=== PATIENT | female | born 1985 | race Caucasian/White ===

== ENCOUNTER 2017-02-27 18:39 | Emergency (ER) | payer OTHER ==
[~2017-02-27] VITALS: Ht 180.3 cm; Wt 115.5 kg
[2017-02-27 19:45] LABS: HEMATOCRIT 42.7 % (36.0-46.0); HEMOGLOBIN 14.6 G/DL (11.9-15.5); MCH 27.7 PG (29.0-34.0); MCHC 34.2 G/DL (30.0-36.0); MCV 80.9 FL (83-99); PLATELET COUNT 387 K/uL (156-360); RBC DIS.WIDTH-SD 37.8 % (39-53); RED BLOOD COUNT 5.28 M/uL (3.80-5.20); WHITE BLOOD COUNT 12.1 K/uL (4.1-10.2)
[2017-02-27 19:53] LABS: ALBUMIN 4.5 g/dL (3.2-4.8); CHLORIDE 102 mEq/L (99-109); POTASSIUM 3.8 mEq/L (3.7-5.4); SODIUM 137 mEq/L (136-147)
[2017-02-27 19:55] LABS: GLUCOSE 144 mg/dL (70-99); TOTAL PROTEIN 7.8 g/dL (6.4-8.3)
[2017-02-27 19:57] LABS: TOTAL BILIRUBIN 0.9 mg/dL (0.0-1.0)
[2017-02-27 19:59] LABS: ALKALINE PHOSPHATASE 54 IU/L (3-129); CREATININE 0.8 mg/dL (0.6-1.3); GFR ESTIMATE (CALCULATED) > 59 mL/min/
[2017-02-27 20:00] LABS: UREA NITROGEN (BUN) 8 mg/dL (9-23)
[2017-02-27 20:01] LABS: AST (GOT) 20 IU/L (2-34)
[2017-02-27 20:02] LABS: ALT (GPT) 17 IU/L (3-49)
[2017-02-27 20:04] LABS: APPEARANCE TURBID ((CLEAR)); BILIRUBIN NEGATIVE; BLOOD NEGATIVE; COLOR AMBER ((YELLOW)); GLUCOSE (STRIP) NEGATIVE; KETONES 20; LEUKOCYTES NEGATIVE; NITRITE NEGATIVE; PROTEIN (STRIP) 100; SPECIFIC GRAVITY 1.033 (1.000-1.030); UROBILINOGEN 0.2 MG/DL (0.2-1.0)
[2017-02-27 20:08] LABS: QUANTITATIVE HCG < 4.0 MIU/ML
[2017-02-27 20:20] LABS: AMORPHOUS URATES CRYSTALS 3+; BACTERIA RARE /HPF; EPITHELIAL CELLS RARE /HPF; MUCUS RARE /LPF; RED BLOOD CELLS RARE /HPF (0-5); UCUL ADDED? NO; WHITE BLOOD CELLS RARE /HPF (0-5)
[2017-02-27] MEDS ORDERED: ZOFRAN ODT4 MG PO (21:45)
[2017-02-27 22:07] VITALS: BP 124/88
== END 2017-02-27 22:15 | disposition home or self-care (01) ==
LOC: EME 18:39
DX: R11.2 Nausea with vomiting, unspecified (principal); R10.9 Unspecified abdominal pain; Z90.49 Acquired absence of other specified parts of digestive tract
CPT/HCPCS: 80053; 81003; 84702; 85027; 99281; 99284; J2405; J7030

== ENCOUNTER 2017-03-01 20:23 | Emergency (ER) | payer OTHER ==
[~2017-03-01] VITALS: Ht 180.3 cm; Wt 113.4 kg
[~2017-03-01 20:23] MED LIST: ZOFRAN ODT4 MG PO
[2017-03-01 20:55] LABS: HEMATOCRIT 44.7 % (36.0-46.0); HEMOGLOBIN 15.2 G/DL (11.9-15.5); MCH 27.7 PG (29.0-34.0); MCV 81.6 FL (83-99); PLATELET COUNT 422 K/uL (156-360); RBC DIS.WIDTH-CV 13.1 % (11.8-14.6); RBC DIS.WIDTH-SD 38.7 % (39-53); RED BLOOD COUNT 5.48 M/uL (3.80-5.20); WHITE BLOOD COUNT 9.4 K/uL (4.1-10.2)
[2017-03-01 21:01] LABS: ALBUMIN 4.5 g/dL (3.2-4.8); CHLORIDE 106 mEq/L (99-109); POTASSIUM 3.5 mEq/L (3.7-5.4); SODIUM 139 mEq/L (136-147)
[2017-03-01 21:03] LABS: GLUCOSE 118 mg/dL (70-99); TOTAL PROTEIN 7.8 g/dL (6.4-8.3)
[2017-03-01 21:07] LABS: ALKALINE PHOSPHATASE 78 IU/L (3-129); CREATININE 0.9 mg/dL (0.6-1.3); GFR ESTIMATE (CALCULATED) > 59 mL/min/; TOTAL BILIRUBIN 0.5 mg/dL (0.0-1.0)
[2017-03-01 21:08] LABS: UREA NITROGEN (BUN) 6 mg/dL (9-23)
[2017-03-01 21:10] LABS: LIPASE 15 U/L (1.0-51.0)
[2017-03-01 21:11] LABS: ALT (GPT) 76 IU/L (3-49); AST (GOT) 111 IU/L (2-34)
[2017-03-01 21:17] LABS: QUANTITATIVE HCG < 4.0 MIU/ML
[2017-03-02 00:49] LABS: APPEARANCE CLOUDY ((CLEAR)); COLOR AMBER ((YELLOW))
[2017-03-02 00:50] LABS: BILIRUBIN SMALL; BLOOD NEGATIVE; GLUCOSE (STRIP) NEGATIVE; KETONES NEGATIVE; LEUKOCYTES NEGATIVE; NITRITE NEGATIVE; PH, URINE 6.5 (5-8); PROTEIN (STRIP) TRACE; UROBILINOGEN 0.2 MG/DL (0.2-1.0)
[2017-03-02 00:53] LABS: BACTERIA RARE /HPF; EPITHELIAL CELLS 2+ /HPF; MUCUS 1+ /LPF; RED BLOOD CELLS 0-5 /HPF (0-5); UCUL ADDED? NO; WHITE BLOOD CELLS 0-5 /HPF (0-5)
[2017-03-02] MEDS ORDERED: IMODIUM MS REL1 EACH PO (02:46)
[2017-03-02] MEDS ORDERED: ZOFRAN4 MG PO (02:46)
[2017-03-02 03:15] VITALS: BP 121/64
== END 2017-03-02 03:16 | disposition home or self-care (01) ==
LOC: EME 20:23
DX: R11.10 Vomiting, unspecified (principal); R19.7 Diarrhea, unspecified; Z90.49 Acquired absence of other specified parts of digestive tract; Z96.649 Presence of unspecified artificial hip joint; Z88.0 Allergy status to penicillin
CPT/HCPCS: 74177; 80053; 81003; 83690; 84702; 85027; 99281; 99285; J2405; J7030